=== PATIENT | male | born 1980 | race Caucasian/White ===

== ENCOUNTER 2021-04-09 10:17 | Outpatient (REF) | payer OTHER, SELFPAY ==
[2021-04-09 10:21] LABS: MANUAL DIFF FLAG NO
[2021-04-09 10:39] LABS: Basophils Percent Auto 0.3 % (0-2); Eosinophils Absolute Auto 0.2 X10*3/uL (0.0-0.4); Eosinophils Percent Auto 3.1 % (0-4); Hematocrit 46.6 % (42-52); Hemoglobin 15.2 g/dl (14.0-18.0); Imm Gran Abs Auto 0.03 X10*3/uL (0.00-0.03); Imm Gran Pct Auto 0.4 % (0.0-0.4); Lymphocytes Absolute Auto 1.9 X10*3/uL (1.2-4.9); Lymphocytes Percent Auto 27.4 % (20-40); Mean Corpuscular HGB Conc 32.6 g/dl (31.0-36.0); Mean Corpuscular Hemoglobin 29.1 pg (27.0-33.0); Mean Corpuscular Volume 89.3 fL (80-98); Monocytes Absolute Auto 0.6 X10*3/uL (0.1-1.2); Monocytes Percent Auto 8.6 % (2-11); Neutrophils Absolute Auto 4.1 X10*3/uL (2.0-8.3); Neutrophils Percent Auto 60.2 % (45-73); Platelet Count 257 X10*3/uL (160-400); Red Blood Count 5.22 X10*6/uL (4.60-5.80); Red Cell Distribution Width 12.3 % (11.0-16.0); White Blood Count 6.9 X10*3/uL (4.8-10.8)
[2021-04-09 10:52] LABS: Glucose Urine UA NEG (NEG); Leukocyte Esterase Urine NEG (NEG); Nitrite Urine NEG (NEG); PH 6.5 (5.0-8.0); Urine Blood NEG (NEG); Urine Ketones NEG (NEG); Urine Protein NEG (NEG-TRACE)
[2021-04-09 10:54] LABS: Appearance Urine CLEAR; Color Urine YELLOW
[2021-04-09 11:43] LABS: Alanine Aminotransferase 47 U/L (0-40); Albumin Level 4.3 g/dL (3.5-5.0); Alkaline Phosphatase 94 U/L (39-117); Anion Gap 10 (12-20); Aspartate Amino Transferase 28 U/L (5-37); Bilirubin Total 0.5 mg/dL (0.0-1.0); Blood Urea Nitrogen 21 mg/dL (9-16); Calcium 8.8 mg/dL (8.4-10.2); Carbon Dioxide 27 mmol/L (22-29); Chloride 107 mmol/L (96-108); Cholesterol 169 mg/dL; Estimated Glomerular Filt Rate > 60; Glucose Fasting 91 mg/dL (60-99); HDL Cholesterol 70 mg/dL; LDL Cholesterol Calculated 86 mg/dl; Potassium 4.2 mmol/L (3.3-5.1); Sodium 140 mmol/L (135-145); Total Protein 6.8 g/dL (6.5-8.0); Triglycerides 66 mg/dL
[2021-04-09 12:08] LABS: PSA,Total (Free>4and<10) 0.31 ng/mL (0.00-4.00)
== END 2021-04-09 10:18 | disposition home or self-care (01) ==
LOC: HO.LNP 10:17
PROVIDERS: Visit Provider Internal Medicine
DX: Z00.00 Encounter for general adult medical examination without abnormal findings (principal); I10 Essential (primary) hypertension; J45.20 Mild intermittent asthma, uncomplicated; R79.89 Other specified abnormal findings of blood chemistry; K92.1 Melena; Z12.5 Encounter for screening for malignant neoplasm of prostate
CPT/HCPCS: 80053; 80061; 81003; 84153; 85025

== ENCOUNTER 2022-04-08 10:38 | Outpatient (REF) | payer OTHER, SELFPAY ==
[2022-04-08 10:42] LABS: MANUAL DIFF FLAG NO
[2022-04-08 11:04] LABS: Basophils Percent Auto 0.6 % (0-2); Eosinophils Absolute Auto 0.4 X10*3/uL (0.0-0.4); Eosinophils Percent Auto 5.5 % (0-4); Hematocrit 45.9 % (42.0-52.0); Imm Gran Abs Auto 0.03 X10*3/uL (0.00-0.03); Imm Gran Pct Auto 0.5 % (0.0-0.4); Lymphocytes Percent Auto 30.8 % (20-40); Mean Corpuscular HGB Conc 32.7 g/dl (31.0-36.0); Mean Corpuscular Volume 88.6 fL (80.0-98.0); Mean Platelet Volume 9.9 fL (9.4-12.4); Monocytes Absolute Auto 0.6 X10*3/uL (0.1-1.2); Monocytes Percent Auto 9.6 % (2-11); Neutrophils Absolute Auto 3.5 x10*3/uL (2.0-8.3); Platelet Count 295 X10*3/uL (160-400); Red Blood Count 5.18 X10*6/uL (4.60-5.80); Red Cell Distribution Width 12.3 % (11.0-16.0); White Blood Count 6.6 X10*3/uL (4.8-10.8)
[2022-04-08 11:18] LABS: Alanine Aminotransferase 45 U/L (0-40); Albumin Level 4.3 g/dL (3.5-5.0); Alkaline Phosphatase 98 U/L (39-117); Anion Gap 13 (12-20); Aspartate Amino Transferase 27 U/L (5-37); Bilirubin Total 0.7 mg/dL (0.0-1.0); Blood Urea Nitrogen 19 mg/dL (9-16); Carbon Dioxide 27 mmol/L (22-29); Chloride 105 mmol/L (96-108); Cholesterol 151 mg/dL; Estimated Glomerular Filt Rate > 60; Glucose Fasting 84 mg/dL (60-99); HDL Cholesterol 63 mg/dL; LDL Cholesterol Calculated 76 mg/dl; Potassium 4.2 mmol/L (3.3-5.1); Sodium 141 mmol/L (135-145); Total Protein 7.1 g/dL (6.5-8.0); Triglycerides 61 mg/dL
[2022-04-08 11:31] LABS: Appearance Urine CLEAR; Color Urine YELLOW; Glucose Urine UA NEG (NEG); Leukocyte Esterase Urine NEG (NEG); Nitrite Urine NEG (NEG); Urine Blood NEG (NEG); Urine Ketones NEG (NEG); Urine Protein NEG (NEG-TRACE)
[2022-04-08 11:38] LABS: PSA,Total (Free>4and<10) 0.44 ng/mL (0.00-4.00)
== END 2022-04-08 10:39 | disposition home or self-care (01) ==
LOC: HO.LNP 10:38
PROVIDERS: Visit Provider Internal Medicine
DX: Z00.00 Encounter for general adult medical examination without abnormal findings (principal); Z12.5 Encounter for screening for malignant neoplasm of prostate; I10 Essential (primary) hypertension; R79.89 Other specified abnormal findings of blood chemistry
CPT/HCPCS: 80053; 80061; 81003; 84153; 85025

== ENCOUNTER 2023-03-27 15:57 | Emergency (ER) | payer OTHER, SELFPAY ==
--- NOTE | ~2023-03-27 | XR_ITS ---
EXAMINATION: XR HAND, LEFT XR HAND AND WRIST, RIGHT CLINICAL INFORMATION: Lacerations with fracture COMPARISON: None available. TECHNIQUE: 3 views of the left hand and wrist, 3 views of the right hand and wrist FINDINGS: There is a tiny punctate 1 mm foreign body seen in the webbing between the fourth and fifth digits on the left. There is a soft tissue laceration along the medial border of the right fifth digit. Bones and soft tissues are otherwise normal. No fractures. Alignment is anatomic. Joint spaces are maintained. No erosions or soft tissue calcifications. XR/XR hand wrist RT IMPRESSION: 1. Soft tissue laceration right fifth digit with tiny foreign body on the left as described above. 2. No evidence of an acute osseous injury.
--- NOTE | ~2023-03-27 | XR_ITS ---
EXAMINATION: XR HAND, LEFT XR HAND AND WRIST, RIGHT CLINICAL INFORMATION: Lacerations with fracture COMPARISON: None available. TECHNIQUE: 3 views of the left hand and wrist, 3 views of the right hand and wrist FINDINGS: There is a tiny punctate 1 mm foreign body seen in the webbing between the fourth and fifth digits on the left. There is a soft tissue laceration along the medial border of the right fifth digit. Bones and soft tissues are otherwise normal. No fractures. Alignment is anatomic. Joint spaces are maintained. No erosions or soft tissue calcifications. XR/XR hand LT 2V IMPRESSION: 1. Soft tissue laceration right fifth digit with tiny foreign body on the left as described above. 2. No evidence of an acute osseous injury.
[2023-03-27 16:09] VITALS: BP 140/99; PULSE 80; RESP 18; TEMP 36.9; O2SAT 94; BMI 32.9
--- NOTE | 2023-03-27 16:12 | ED.GENADULT ---
HPI - General Adult General Chief complaint: Wound/Laceration Stated complaint: lacerations to both hands Time Seen by Provider: 03/27/23 16:15 Source: patient and family () Mode of arrival: ambulatory Limitations: no limitations History of Present Illness HPI narrative: Patient is a 42 year old assigned male at with no reported medical history presenting to the emergency department today with a right and left hand laceration. Patient states that he was attempted to work on a grill when his hand slipped loosening a nut, causing him to cut both his right 5th finger and left 3rd finger. Patient states that he does not know when his last tetanus shows. Patient denies any dizziness, lightheadedness, abdominal pain, nausea, vomiting, fever, chills, blurry vision, double vision, loss of vision, chest pain, difficulty breathing, shortness of breath, back pain, night sweats, pain with urination, increased urinary frequency, increased urinary urgency, blood in his urine or stool, syncope or a near syncopal episode, bowel incontinence, bladder incontinence, bowel retention, bladder retention, or any other complaints at this time. Onset (ago): minute(s) Location: left, right and upper extremity Severity: mild Relieving factors: none Exacerbating factors: none Associated symptoms: denies other symptoms Treatments prior to arrival: none Related Data Previous Rx's Medication Instructions Recorded cephalexin 500 mg capsule 500 mg PO Q6H 7 days #28 caps 03/27/23 Allergies Allergy/AdvReac Type Severity Reaction Status Date / Time No Known Allergies Allergy Unverified 07/16/20 15:11 Review of Systems Constitutional: Constitutional: Reports no additional constitutional complaints, Denies chills, Denies fever(s) and Denies night sweats Eyes: Eyes: Reports no additional eye complaints, Denies blurry vision, Denies change in vision, Denies diplopia, Denies eye discharge, Denies loss of vision and Denies eye pain ENT: Denies dizziness Cardiovascular: Cardiovascular: Reports no additional cardiovascular complaints, Denies chest pain, Denies lightheadedness, Denies Loss of Consciousness and Denies dyspnea Respiratory: Respiratory: Reports no additional respiratory complaints and Denies dyspnea Gastrointestinal: Gastrointestinal: Reports no additional gastrointestinal complaints, Denies abdominal pain, Denies melena, Denies hematochezia, Denies change in bowel habits and Denies change in stool character Genitourinary: Genitourinary: Reports no additional male genitourinary complaints, Denies hematuria, Denies oliguria, Denies difficulty urinating, Denies dysuria, Denies urinary frequency, Denies urinary hesitancy, Denies urinary incontinence and Denies urinary urgency Musculoskeletal: Musculoskeletal: Reports no additional musculoskeletal complaints, Denies numbness and Denies tingling Comments: right 5th finger laceration and left 3rd digit laceration Neurologic: Denies dizziness, Denies loss of vision, Denies numbness and Denies tingling Psychiatric: Psychiatric: Reports no additional psychiatric complaints Endocrine: Endocrine: Reports no additional endocrine complaints Hematologic/Lymphatic: Hematologic/Lymphatic: Reports no additional hematologic/lymphatic complaints Allergic/Immunologic: Allergic/Immunologic: Reports no additional allergic/immunologic complaints PMFSH Past Medical History Attestation statement: The following information was validated with the patient. (all information validated with the patient's ) Source: old records reviewed, obtained from family (patient's ) and nursing notes reviewed Social History Social History Advance Directives: No Advance Directives Information Provided: No Physical Exam ED Vital Signs: Vital Signs - 24 hr 03/27/23 16:09 Temperature 98.4 F Pulse Rate 80 Respiratory Rate 18 Blood Pressure 140/99 H Pulse Oximetry 94 Oxygen Delivery Method Room Air BMI result Body Mass Index 32.9 Const General: cooperative, no acute distress, alert and awake Nutritional Appearance: well nourished Orientation/consciousness: patient oriented x3 Limitations: no limitations [facility] Head: Yes normal to inspection and Yes atraumatic Ears: hearing grossly normal bilaterally and external ears normal General nose exam: Normal external nose present, no nasal discharge noted and no epistaxis Face and sinus: Yes normal facial exam, No abrasion and No laceration Mouth: Normal oral and palatal mucosa present, no drooling and no muffled voice Eyes General: appearance normal, both eyes and all related structures Periorbital: periorbital findings normal Eyelids: Yes eyelids normal Conjunctivae: conjunctivae normal Pupils: Equal, round and reactive pupils present EOM: EOMs intact bilaterally Neck Neck: Yes normal visual inspection, Yes full ROM and Yes no lymphadenopathy Chest Chest palpation & inspection: normal inspection of the chest Resp Effort & Inspection: normal respiratory effort and able to speak in complete sentences Auscultation: clear to auscultation bilaterally GI Inspection: Yes normal to inspection Neuro General: patient oriented x3 and moves all extremities Cranial nerves: Yes Equal, round and reactive pupils present Cognition (Neuro): normal cognition Motor exam (neuro): 5/5 motor strength present throughout Sensory Exam: Normal double simultaneous stimulation for sensation Coordination: [id number] test normal Extrem General: Yes full ROM and Yes capillary refill normal Hand/finger images: 1. 3.5cm laceration, no active bleeding 2. 1cm laceration, no active bleeding Psych Appearance: grossly normal Mental Status: mental status grossly normal Affect: normal affect Attitude: cooperative Thought process: Normal thought process present Thought content: Normal thought content present Insight: Good insight present (Psych) Course Course Course Narrative: RME: patient presents to the ED for bilateral hand finger lacerations while working the grIwebalize today. unknown last tetanus shot. xryas ordered. patient brought to [facility] Medications Administered Discontinued Medications Generic Name Dose Route Start Last Admin Trade Name Freq PRN Reason Stop Dose Admin Diphtheria/Tetanus/Acell Pertussis 0.5 ml 03/27/23 16:29 03/27/23 17:42 Diphth,Pertus(Acell),Tet Adult 0.5 Ml Syringe IM 03/27/23 16:30 0.5 ml .ONCE ONE Administration Lidocaine HCl 10 ml 03/27/23 16:29 03/27/23 17:34 Lidocaine Hcl 1 % Mpf 5 Ml Vial SUBCUT 03/27/23 16:30 10 ml ONCE ONE Administration Procedures Laceration Laceration 1: Site: hand Side (If applicable): right Size (cm): 3.5 Description: linear Depth: simple, single layer Local Anesthetic: lidocaine 1% Amount of anesthesia used (mL): 5 Pre-repair: wound explored, irrigated extensively and deep structures intact Skin layer closed with: other (prolene) Size (cm): 4-0 Number of sutures: 5 Technique: simple, interrupted Subcutaneous layer closed with: chromic gut Size: 5-0 Number of sutures: 2 Technique: simple, interrupted Laceration 2: Site: hand Side (If applicable): left Size (cm): 1 Description: flap Depth: simple, single layer Local Anesthetic: lidocaine 1% Amount of anesthesia used (mL): 2.5 Pre-repair: wound explored, irrigated extensively and deep structures intact Skin layer closed with: other (prolene) Size (cm): 6-0 Number of sutures: 1 Technique: simple, interrupted Medical Decision Making Medical Decision Making MDM Narrative: Patient is a 42 year old assigned male at with no reported medical history presenting to the emergency department today with a right and left hand laceration. Patient's physical exam was as noted in the physical exam portion of this chart. Patient's bilateral hand x-ray showed no acute process. I explained my physical exam findings as well as all test results to the patient and the patient's . I answered all questions asked by the patient and the patient's . Patient's lacerations were repaired, per procedure note, without incident. Patient's ROM and PMS was in tact prior to and after sutures. Patient brought up to date on tetanus. I stressed the importance of the patient having his sutures removed in 7-10 days. I stressed the importance of the patient not soaking the affected area. I stressed the importance of the patient performing daily wound checks and dressing changes. I stressed the importance of the patient taking his medication as prescribed. I stressed the importance of the patient following up with his primary care provider. I stressed the importance of the patient returning to the emergency department immediately if his symptoms were to worsen or if he were to develop any dizziness, shortness of breath, difficulty breathing, chest pain, blurry vision, loss of vision, nausea, vomiting, abdominal pain, fever, chills, back pain, or any other complaints. Patient and the patient's verbalized agreement and understanding with this treatment plan and discharge. Differential Diagnosis Differential Diagnoses: The differential diagnosis associated with the presentation includes laceration Independent Interpretation I performed an independent interpretation of an: Plain X-Ray Interpretation: My interpretation is in agreement with the radiologist's impression of these imaging studies. EXAMINATION: XR HAND, LEFT XR HAND AND WRIST, RIGHT CLINICAL INFORMATION: Lacerations with fracture? COMPARISON: None available.? TECHNIQUE: 3 views of the left hand and wrist, 3 views of the right hand and wrist FINDINGS: There is a tiny punctate 1 mm foreign body seen in the webbing between the fourth and fifth digits on the left. There is a soft tissue laceration along the medial border of the right fifth digit. Bones and soft tissues are otherwise normal. No fractures. Alignment is anatomic. Joint spaces are maintained. No erosions or soft tissue calcifications. ? XR/XR hand wrist RT IMPRESSION: 1.? Soft tissue laceration right fifth digit with tiny foreign body on the left as described above. 2.? No evidence of an acute osseous injury. Dictated By: Brenden Snider MD Signed By: Electronically signed by Brenden Snider MD 03/27/23 [id number] Independent Historian Clinical information obtained from an independent historian. History obtained from or confirmed by: Spouse Discharge Plan Discharge Clinical Impression: Laceration Patient Disposition: Home, Self-Care Instructions: Care For Your Stitches (DC) Additional Instructions: Have your stitches (5 on the right hand and 1 on the left hand) removed in 7-10 days. Do NOT soak the affected area. Perform daily dressing changes and wound checks. Take your antibiotics as prescribed. Follow up with your primary care provider. Return to the emergency department immediately if your symptoms worsen or if you develop any dizziness, shortness of breath, difficulty breathing, chest pain, blurry vision, loss of vision, nausea, vomiting, abdominal pain, fever, chills, back pain, or any other complaints. Prescriptions: New cephalexin 500 mg capsule 500 mg PO Q6H 7 Days Qty: 28 0RF Referrals: Harman Haro MD [Primary Care Provider] - Interventions: ED Discharge Assessment Last Done: 03/27/23 18:02 Discharge Date/Time: 03/27/23 18:03 Print Language: Setswana
--- NOTE | 2023-03-27 16:44 | PC.NURSE ---
bilateral hands placed in ns and iodine, awaiting suture repair by provider
[2023-03-27] MEDS: Lidocaine HCl 1 % MPF 5 ML VIAL 10 ML SUBCUT (17:34)
[2023-03-27] MEDS: Diphth,Pertus(ACell),Tet Adult 0.5 ML SYRINGE IM (17:42)
--- NOTE | 2023-03-27 18:02 | PC.NURSE ---
pt medicated per MAR
--- OUTSIDE RECORDS SUMMARY | 2023-03-27 18:04 | XMS_ITS | Continuity of Care Document ---
Author Name Unknown Organization [facility] Address [address] [address]- Care Team Providers Care Pneumatic Press Hand Name Role Phone Estrellita TIRADO, Harman Primary Care Physician [phone] Encounter [facility] [place] Date(s): 05/04/20 - 06/03/20 [facility] [address] [place] [address]- [facility] Allergies, Adverse Reactions, Alerts No Known Medication Allergies Medications Accolate 20 mg oral tablet 1 tablet = 20 mg, By Mouth, 2 times a day, 1 hour before or 2 hours after meals, # 60 tablet, 5 Refills, Maintenance, 01/20/20 16:46:00 EDT, Tablet, [id number], 190.5, cm, 12/18/19 9:58:00 EST, Height, 117, kg, 12/18/19 9:58:00 EST, Dry Weight Start Date: 01/20/20 Status: Ordered Advair Diskus 500 mcg-50 mcg inhalation powder 1 puffs, Inhalation, 2 times a day, # 180 each, 5 Refills, Maintenance, 08/13/15 9:24:37, Powder, 1puffs Inhalation 2 times a day Start Date: 08/13/15 Status: Ordered CeleXA 40 mg oral tablet 1 tablet = 40 mg, By Mouth, Daily, # 30 tablet, 0 Refills, Maintenance, 08/13/15 9:00:44, Tablet Start Date: 08/13/15 Status: Ordered Fish Oil 1000 mg oral capsule See Instructions, 3 capsule By Mouth 2 times a day, 0 Refills, Maintenance, 08/13/15 9:03:08, Capsule Start Date: 08/13/15 Status: Ordered Multivitamin Tablet 1 tablet, By Mouth, Daily, # 30 tablet, 0 Refills, Maintenance, 08/13/15 9:01:28, Tablet Start Date: 08/13/15 Status: Ordered ProAir HFA 90 mcg/inh inhalation aerosol with adapter 1 puffs, Inhalation, Every 4 hours, PRN for wheezing, # 8.5 Gm, 0 Refills, Maintenance, 08/13/15 9:00:32, Aerosol Start Date: 08/13/15 Status: Ordered Pulmicort Flexhaler 180 mcg 2 puffs, Inhalation, 2 times a day, J45.909, # 1 each, 6 Refills, Maintenance, 05/07/20 9:55:00 EDT, Powder, [facility]/pharmacy #[id number], ICD Code J45.31; J45.909, 2 puffs Inhalation 2 times a day,Instr:J45.909, 190.5, cm, 12/18/19 9:58:00 EST,... Start Date: 05/07/20 Status: Ordered Ritalin 10 mg oral tablet 3 tablets, By Mouth, Daily, Refills 0, Tot. Refills 0, Maintenance, 12/13/19 12:50:00 EST Start Date: 12/13/19 Status: Ordered Singulair 10 mg oral tablet 10 mg, 1, tablet, By Mouth, Daily in PM, # 30 tablet, Refills 11, Tot. Refills 11, Maintenance, 01/09/19 12:37:00 EDT, Route to Pharmacy Electronically, [id number], [facility]/pharmacy #[id number], ICD Code J45.909 Start Date: 01/09/19 Status: Ordered Spiriva Respimat 1.25 mcg/inh inhalation aerosol 2 puffs, Inhalation, Daily, needs appointment for further refills., # 1 each, 11 Refills, Maintenance, 05/04/20 11:11:00 EDT, Aerosol, [facility]/pharmacy #[id number], ICD Code J44.30, 190.5, cm, 12/18/19 9:58:00EST, Height, 117, kg, 12/18/19 9:58:00 EST, Dry Weight Start Date: 05/04/20 Status: Ordered Problem List Condition Effective Dates Status Health Status Inform ant Mild persistent asthma(Confirmed) Active Social History Social History Type Response Smoking Status Former smoker; Tobac co user in household: No; Other: quit smoking 2011; entered on: 03/08/16 Sex
--- OUTSIDE RECORDS SUMMARY | 2023-03-27 18:04 | XMS_ITS | Continuity of Care Document ---
Author Name Unknown Organization [facility] Address [address] [place] [phone]- Care Team Providers Care Export Clerk Name Role Phone Estrellita TIRADO, Harman Primary Care Physician [phone] Encounter [facility] Date(s): 11/12/20 - 12/12/20 [facility] [address] [place] [id number] Allergies, Adverse Reactions, Alerts No Known Medication [...] 2 puffs, Inhalation, 2 times a day, J45.909 further refills require pt to schedule and keep an appointment with MD., # 1 each, 2 Refills, Maintenance, 11/17/20 9:52:00 EST, Powder, [facility]/pharmacy #[id number], ICD Code J45.31; J45.909, 2 puffs... Start Date: 11/17/20 Status: Ordered Ritalin 10 mg oral tablet 3 tablets, By Mouth, Daily, Refills 0, Tot. Refills 0, Maintenance, 12/13/19 12:50:00 EST Start Date: 12/13/19 Status: Ordered Singulair 10 mg oral tablet 10 mg, 1, tablet, By Mouth, Daily in PM, # 30 tablet, Refills 11, Tot. Refills 11, Maintenance, 01/09/19 12:37:00 EDT, Route to Pharmacy Electronically, [id number], [facility]/pharm[facility] #[id number], ICD Code J45.909 Start Date: 01/09/19 Status: Ordered Spiriva Respimat 1.25 mcg/inh inhalation aerosol 2 puffs, Inhalation, Daily, needs appointment for further refills., # 1 each, 11 Refills, Maintenance, 05/04/20 11:11:00 EDT, Aerosol, [facility]/pharm[facility] #[id number], ICD Code J44.30, 190.5, cm, 12/18/19 [...]
--- OUTSIDE RECORDS SUMMARY | 2023-03-27 18:04 | XMS_ITS | Continuity of Care Document ---
Author Name Unknown Organization [facility] Address [address] [place] [address]- Care Team Providers Care Director Of Special Events Name Role Phone Estrellita TIRADO, Harman Primary Care Physician [phone] Encounter [id number] Date(s): 07/28/21 - 08/27/21 [facility] [address] [place] [address]- Attending Physician: Rashard Gallardo Admitting Physician: AdmtrRashard Referring Physician: Admtr, Ar8 Allergies, Adverse Reactions, Alerts No Known Medication Allergies Medications Accolate 20 mg oral tablet 1 tablet = 20 mg, By Mouth, 2 times a day, 1 hour before or 2 hours after meals, # 60 tablet, 5 Refills, Maintenance, 01/20/20 16:46:00 EDT, Tablet, [facility]/pharmacy #[id number], 190.5, cm, 12/18/19 9:58:00 EST, Height, [...] an appointment with MD., # 1 each, 6 Refills, Maintenance, 02/10/21 13:15:00 EDT, Powder, [id number], ICD Code J45.31; J45.909, 2 puff... Start Date: 02/10/21 Status: Ordered Ritalin 10 mg oral tablet 3 tablets, By Mouth, Daily, Refills 0, Tot. Refills 0, Maintenance, 12/13/19 12:50:00 EST Start Date: 12/13/19 Status: Ordered Singulair 10 mg oral tablet 10 mg, 1, tablet, By Mouth, Daily in PM, # 30 tablet, Refills 11, Tot. Refills 11, Maintenance, 01/09/19 12:37:00 EDT, Route to Pharmacy Electronically, [id number], [id number], ICD Code J45.909 Start Date: 01/09/19 Status: Ordered Spiriva Respimat 1.25 mcg/inh inhalation aerosol 2 puffs, Inhalation, Daily, # 4 mL, 5 Refills, Maintenance, 05/28/21 10:59:00 EDT, [id number], 190.5, cm, 01/26/21 10:00:00 EDT, Height, 117, kg, 12/18/19 9:58:00 EST, Dry Weight Start Date: 05/28/21 Status: Ordered Problem List Condition Effective Dates Status Health Status Inform ant Mild persistent asthma(Confirmed) Active Social History Social History Type Response Smoking Status Former smoker; Tobac co user in household: No; Other: quit smoking 2011; entered on: 03/08/16 Sex
--- OUTSIDE RECORDS SUMMARY | 2023-03-27 18:04 | XMS_ITS | Continuity of Care Document ---
Author Name Unknown Organization [facility] Address [address] [address]- Care Team Providers Care Electronics Inspector Name Role Phone Estrellita TIRADO, Harman Primary Care Physician [phone] Encounter [facility] [place] Date(s): 05/06/20 - 06/05/20 [facility] [address] [place] [address]- [facility] Allergies, Adverse Reactions, Alerts No Known Medication [...] 6 Refills, Maintenance, 05/07/20 9:55:00 EDT, Powder, [facility]/pharmacy #[id number], ICD Code J45.31; J45.909, 2 puffs [...] 01/09/19 12:37:00 EDT, Route to Pharmacy Electronically, [id number], [facility]/pharmacy #[id number], ICD Code J45.909 Start Date: 01/09/19 Status: Ordered Spiriva Respimat 1.25 mcg/inh inhalation aerosol 2 puffs, Inhalation, Daily, needs appointment for further refills., # 1 each, 11 Refills, Maintenance, 05/04/20 11:11:00 EDT, Aerosol, [facility]/pharmacy #[id number], ICD Code J44.30, 190.5, cm, 12/18/19 [...]
--- OUTSIDE RECORDS SUMMARY | 2023-03-27 18:04 | XMS_ITS | Continuity of Care Document ---
Author Name Unknown Organization [facility] Address [address] [place] [address]- Care Team Providers Care Fly Raiser Lockstitch Name Role Phone Estrellita TIRADO, Harman Primary Care Physician [phone] Encounter [facility] [place] Date(s): 02/10/21 - 03/12/21 [facility] [address] [place] [id number] Allergies, Adverse Reactions, Alerts No Known Medication [...] 6 Refills, Maintenance, 02/10/21 13:15:00 EDT, Powder, [facility]/pharmacy #[id number], ICD Code J45.31; J45.909, 2 puff... [...] 01/09/19 12:37:00 EDT, Route to Pharmacy Electronically, [id number], [facility]/pharmacy #[id number], ICD Code J45.909 Start Date: 01/09/19 Status: Ordered Spiriva Respimat 1.25 mcg/inh inhalation aerosol 2 puffs, Inhalation, Daily, needs appointment for further refills., # 1 each, 11 Refills, Maintenance, 05/04/20 11:11:00 EDT, Aerosol, [facility]/pharmacy #[id number], ICD Code J44.30, 190.5, cm, 12/18/19 [...]
--- OUTSIDE RECORDS SUMMARY | 2023-03-27 18:04 | XMS_ITS | Continuity of Care Document ---
Author Name Unknown Organization [facility] Address [address] [address]- Care Team Providers Care Associate Biological Sales Name Role Phone Harman Haro MD Primary Care Physician [phone] Encounter [facility] [place] Date(s): 05/25/20 - 06/28/20 [facility] [address] [facility] [address] [place] [address] [facility] Attending Physician: Breezy Zimmer MD Admitting Physician: Breezy Zimmer MD Referring Physician: Harman Haro MD Allergies, Adverse Reactions, Alerts No Known Medication Allergies Medications Accolate 20 mg oral tablet 1 tablet = 20 mg, By Mouth, 2 times a day, 1 hour before or 2 hours after meals, # 60 tablet, 5 Refills, Maintenance, 01/20/20 16:46:00 EDT, Tablet, [facility]/pharmacy #[id number], 190.5, cm, 12/18/19 9:58:00 EST, Height, [...] 6 Refills, Maintenance, 05/07/20 9:55:00 EDT, Powder, [facility]/pharmacy #[id number], ICD Code J45.31; J45.909, 2 puffs [...] 01/09/19 12:37:00 EDT, Route to Pharmacy Electronically, [id number], [facility]/pharmacy #[id number], ICD Code J45.909 Start Date: 01/09/19 Status: Ordered Spiriva Respimat 1.25 mcg/inh inhalation aerosol 2 puffs, Inhalation, Daily, needs appointment for further refills., # 1 each, 11 Refills, Maintenance, 05/04/20 11:11:00 EDT, Aerosol, [facility]/pharmacy #[id number], ICD Code J44.30, 190.5, cm, 12/18/19 [...]
== END 2023-03-27 18:03 | disposition home or self-care (01) ==
PROVIDERS: Emergency Provider Emergency Medicine; PCP Internal Medicine
DX: S61.411A Laceration without foreign body of right hand, initial encounter (principal); S61.412A Laceration without foreign body of left hand, initial encounter; S60.512A Abrasion of left hand, initial encounter; S60.511A Abrasion of right hand, initial encounter; M25.532 Pain in left wrist; M25.531 Pain in right wrist; W26.9XXA Contact with unspecified sharp object(s), initial encounter; Y93.9 Activity, unspecified; Y92.9 Unspecified place or not applicable; Y99.9 Unspecified external cause status; Z79.899 Other long term (current) drug therapy; Z23 Encounter for immunization
CPT/HCPCS: 12042; 73110; 73120; 73130; 90471; 90715; 99282; 99284

== ENCOUNTER 2023-04-11 13:12 | Outpatient (REF) | payer OTHER, SELFPAY ==
[2023-04-11 13:17] LABS: MANUAL DIFF FLAG NO
[2023-04-11 13:29] LABS: Appearance Urine Clear; Basophils Percent Auto 0.4 % (0-2); Color Urine Yellow; Eosinophils Absolute Auto 0.2 X10*3/uL (0.0-0.4); Eosinophils Percent Auto 3.4 % (0-4); Glucose Urine UA Negative (Negative); Hematocrit 46.9 % (42.0-52.0); Hemoglobin 15.3 g/dl (14.0-18.0); Imm Gran Abs Auto 0.02 X10*3/uL (0.00-0.03); Imm Gran Pct Auto 0.3 % (0.0-0.4); Leukocyte Esterase Urine Negative (Negative); Lymphocytes Absolute Auto 2.3 X10*3/uL (1.2-4.9); Lymphocytes Percent Auto 33.9 % (20-40); Mean Corpuscular HGB Conc 32.6 g/dl (31.0-36.0); Mean Corpuscular Volume 88.8 fL (80.0-98.0); Mean Platelet Volume 9.6 fL (9.4-12.4); Monocytes Absolute Auto 0.6 X10*3/uL (0.1-1.2); Monocytes Percent Auto 9.4 % (2-11); Neutrophils Absolute Auto 3.6 x10*3/uL (2.0-8.3); Neutrophils Percent Auto 52.6 % (45-73); Nitrite Urine Negative (Negative); Platelet Count 295 X10*3/uL (160-400); Red Blood Count 5.28 X10*6/uL (4.60-5.80); Red Cell Distribution Width 12.4 % (11.0-16.0); Specific Gravity - Urine 1.025 (1.005-1.025); Urine Blood Negative (Negative); Urine Ketones Negative (Negative); Urine Protein Negative (Neg-Trace); White Blood Count 6.8 X10*3/uL (4.8-10.8)
[2023-04-11 13:32] LABS: Bacteria Urine None Seen (None Seen); Hyaline Casts Urine 0-2 /LPF (0-2); Squamous Epithelial Cell Urine 0-2 /HPF (0-2); WBC Urine 0-5 /HPF (0-5)
[2023-04-11 13:52] LABS: Alanine Aminotransferase 62 U/L (0-40); Albumin Level 4.1 g/dL (3.5-5.0); Alkaline Phosphatase 103 U/L (39-117); Anion Gap 10 (12-20); Aspartate Amino Transferase 33 U/L (5-37); Bilirubin Direct 0.2 mg/dL (0.0-0.5); Bilirubin Total 0.6 mg/dL (0.0-1.0); Blood Urea Nitrogen 25 mg/dL (9-16); Calcium 9.2 mg/dL (8.4-10.2); Carbon Dioxide 25 mmol/L (22-29); Chloride 109 mmol/L (96-108); Cholesterol 165 mg/dL; Estimated Glomerular Filt Rate > 60; Glucose Fasting 90 mg/dL (60-99); HDL Cholesterol 61 mg/dL; LDL Cholesterol Calculated 96 mg/dl; Potassium 4.2 mmol/L (3.3-5.1); Sodium 140 mmol/L (135-145); Triglycerides 44 mg/dL
[2023-04-11 14:06] LABS: PSA,Total (Free>4and<10) 0.47 ng/mL (0.00-4.00)
== END 2023-04-11 13:13 | disposition home or self-care (01) ==
LOC: HO.LNP 13:12
PROVIDERS: Visit Provider Internal Medicine
DX: Z00.00 Encounter for general adult medical examination without abnormal findings (principal); I10 Essential (primary) hypertension; R79.89 Other specified abnormal findings of blood chemistry; K92.1 Melena; Z12.5 Encounter for screening for malignant neoplasm of prostate
CPT/HCPCS: 80053; 80061; 80076; 81001; 82248; 84153; 85025

== ENCOUNTER 2023-05-12 11:37 | Outpatient (REF) | payer OTHER, SELFPAY ==
[2023-05-12 11:50] LABS: Appearance Urine Clear; Color Urine Yellow; Glucose Urine UA Negative (Negative); Leukocyte Esterase Urine Negative (Negative); Nitrite Urine Negative (Negative); Specific Gravity - Urine 1.015 (1.005-1.025); Urine Blood Negative (Negative); Urine Ketones Negative (Negative); Urine Protein Negative (Neg-Trace)
[2023-05-12 11:52] LABS: Bacteria Urine None Seen (None Seen); Hyaline Casts Urine 0-2 /LPF (0-2); RBC Urine 0-2 /HPF (0-2); Squamous Epithelial Cell Urine 0-2 /HPF (0-2); WBC Urine 0-5 /HPF (0-5)
== END 2023-05-12 11:38 | disposition home or self-care (01) ==
LOC: HO.LNP 11:37
PROVIDERS: Visit Provider Internal Medicine
DX: R31.9 Hematuria, unspecified (principal)
CPT/HCPCS: 81001

== ENCOUNTER 2023-06-19 10:57 | Outpatient (REF) | payer OTHER, SELFPAY ==
[2023-06-19 11:32] LABS: Appearance Urine Clear; Color Urine Yellow; Glucose Urine UA Negative (Negative); Leukocyte Esterase Urine Negative (Negative); Nitrite Urine Negative (Negative); Urine Blood Negative (Negative); Urine Ketones Negative (Negative); Urine Protein Negative (Neg-Trace)
[2023-06-19 11:37] LABS: Bacteria Urine None Seen (None Seen); Hyaline Casts Urine 0-2 /LPF (0-2); RBC Urine 0-2 /HPF (0-2); Squamous Epithelial Cell Urine 0-2 /HPF (0-2); WBC Urine 0-5 /HPF (0-5)
[2023-06-19 11:44] LABS: Blood Urea Nitrogen 21 mg/dL (9-16)
== END 2023-06-19 10:58 | disposition home or self-care (01) ==
LOC: HO.LNP 10:57
PROVIDERS: Visit Provider Internal Medicine
DX: R31.9 Hematuria, unspecified (principal); R79.9 Abnormal finding of blood chemistry, unspecified
CPT/HCPCS: 81001; 84520

== ENCOUNTER 2024-05-27 11:05 | Outpatient (REF) | payer OTHER, SELFPAY ==
[2024-05-27 11:13] LABS: MANUAL DIFF FLAG NO
[2024-05-27 11:45] LABS: Basophils Percent Auto 0.5 % (0-2); Eosinophils Absolute Auto 0.3 X10*3/uL (0.0-0.4); Eosinophils Percent Auto 4.3 % (0-4); Hematocrit 45.5 % (42.0-52.0); Hemoglobin 14.9 g/dl (14.0-18.0); Imm Gran Abs Auto 0.02 X10*3/uL (0.00-0.03); Imm Gran Pct Auto 0.3 % (0.0-0.4); Lymphocytes Absolute Auto 1.8 X10*3/uL (1.2-4.9); Lymphocytes Percent Auto 31.3 % (20-40); Mean Corpuscular HGB Conc 32.7 g/dl (31.0-36.0); Mean Corpuscular Hemoglobin 29.4 pg (27.0-33.0); Mean Corpuscular Volume 89.7 fL (80.0-98.0); Monocytes Absolute Auto 0.5 X10*3/uL (0.1-1.2); Monocytes Percent Auto 8.9 % (2-11); Neutrophils Absolute Auto 3.2 x10*3/uL (2.0-8.3); Neutrophils Percent Auto 54.7 % (45-73); Platelet Count 291 X10*3/uL (160-400); Red Blood Count 5.07 X10*6/uL (4.60-5.80); Red Cell Distribution Width 12.7 % (11.0-16.0); White Blood Count 5.8 X10*3/uL (4.8-10.8)
[2024-05-27 11:46] LABS: Appearance Urine Clear; Color Urine Yellow; Glucose Urine UA Negative (Negative); Leukocyte Esterase Urine Negative (Negative); Nitrite Urine Negative (Negative); Urine Blood Negative (Negative); Urine Ketones Negative (Negative); Urine Protein Negative (Neg-Trace)
[2024-05-27 11:52] LABS: Bacteria Urine None Seen (None Seen); Hyaline Casts Urine 0-2 /LPF (0-2); RBC Urine 0-2 /HPF (0-2); Squamous Epithelial Cell Urine 0-2 /HPF (0-2); WBC Urine 0-5 /HPF (0-5)
[2024-05-27 12:18] LABS: Alanine Aminotransferase 34 U/L (0-40); Albumin Level 4.1 g/dL (3.5-5.0); Alkaline Phosphatase 88 U/L (39-117); Anion Gap 10 (12-20); Aspartate Amino Transferase 26 U/L (5-37); Bilirubin Direct 0.3 mg/dL (0.0-0.5); Bilirubin Total 0.6 mg/dL (0.0-1.0); Blood Urea Nitrogen 15 mg/dL (9-16); Calcium 9.3 mg/dL (8.4-10.2); Carbon Dioxide 26 mmol/L (22-29); Chloride 108 mmol/L (96-108); Cholesterol 152 mg/dL (<200); Estimated Glomerular Filt Rate > 60; Glucose Fasting 92 mg/dL (60-99); HDL Cholesterol 60 mg/dL (>40); LDL Cholesterol Calculated 79 mg/dL (<100); Potassium 4.1 mmol/L (3.3-5.1); Sodium 140 mmol/L (135-145); Total Protein 7.1 g/dL (6.5-8.0); Triglycerides 69 mg/dL (<150)
== END 2024-05-27 11:06 | disposition home or self-care (01) ==
LOC: HO.LNP 11:05
PROVIDERS: Visit Provider Internal Medicine
DX: Z00.00 Encounter for general adult medical examination without abnormal findings (principal); C82.02 Follicular lymphoma grade I, intrathoracic lymph nodes; M10.9 Gout, unspecified; Z12.5 Encounter for screening for malignant neoplasm of prostate
CPT/HCPCS: 80053; 80061; 80076; 81001; 82248; 84153; 85025

== ENCOUNTER 2025-07-22 09:45 | Outpatient (REF) | payer OTHER, SELFPAY ==
--- OUTSIDE RECORDS SUMMARY | 2024-05-27 03:00 | XMS_ITS ---
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 Name Role Phone Harman Haro Primary Care Provider Results Component Value Reference Range Notes Complete Blood Count Auto Di ff Reviewed date:05/27/2024 05:26:35 PM Interpretation: Performing Lab:[facility], [address] [place] [phone] Notes/Report: White Blood Count 5.8 4.8-10.8 X10*3/uL Red Blood Count 5.07 4.60-5.80 X10*6/uL Hemoglobin 14.9 14.0-18.0 g/dl Hematocrit 45.5 42.0-52.0 % Mean Corpuscular Volume 89.7 80.0-98.0 fL Mean Corpuscular Hemoglobin 29.4 27.0-33.0 pg Mean Corpuscular HGB Conc 32.7 31.0-36.0 g/dl Red Cell Distribution Width 12.7 11.0-16.0 % Platelet Count 291 160-400 X10*3/uL Mean Platelet Volume 10.0 9.4-12.4 fL Neutrophils Percent Auto 54.7 45-73 % Imm Gran Pct Auto 0.3 0.0-0.4 % Lymphocytes Percent Auto 31.3 20-40 % Monocytes Percent Auto 8.9 2-11 % Eosinophils Percent Auto 4.3 0-4 % Basophils Percent Auto 0.5 0-2 % NRBC Pct Auto 0.0 0.0-0.2 /100WBC Neutrophils Absolute Auto 3.2 2.0-8.3 x10*3/u L Imm Gran Abs Auto 0.02 0.00-0.03 X10*3/uL Lymphocytes Absolute Auto 1.8 1.2-4.9 X10*3/u L Monocytes Absolute Auto 0.5 0.1-1.2 X10*3/uL Eosinophils Absolute Auto 0.3 0.0-0.4 X10*3/u L Basophils Absolute Auto 0.0 0.0-0.2 X10*3/uL NRBC Abs Auto 0.000 0.0-0.012 X10*3/uL Comprehensive Belding. Panel Fa st Reviewed date:05/27/2024 12:45:46 PM Interpretation: Performing Lab:[facility], [address] [place] [phone] Notes/Report: Sodium 140 135-145 mmol/L Potassium 4.1 3.3-5.1 mmol/L Chloride 108 96-108 mmol/L Carbon Dioxide 26 22-29 mmol/L Anion Gap 10 12-20 Blood Urea Nitrogen 15 9-16 mg/dL Creatinine 0.85 0.5-1.4 mg/dL Estimated Glomerular Filt Rate > 60 NOTE: For -British individuals, multiply the result by 1.210. Chronic Kidney Disease: Estimated GFR < 60 mL/min/1.73m2 Severe Kidney Disease: Estimated GFR < 15 mL/min/1.73m2 Glucose Fasting 92 60-99 mg/dL Calcium 9.3 8.4-10.2 mg/dL Bilirubin Total 0.6 0.0-1.0 mg/dL Aspartate Amino Transferase 26 5-37 U/L Alanine Aminotransferase 34 0-40 U/L Total Protein 7.1 6.5-8.0 g/dL Albumin Level 4.1 3.5-5.0 g/dL Alkaline Phosphatase 88 39-117 U/L Liver Panel Reviewed date:05/27/2024 12:44:53 PM Interpretation: Performing Lab:[address] [id number] Notes/Report: Bilirubin Direct 0.3 0.0-0.5 mg/dL Lipid Panel Reviewed date:05/27/2024 12:26:03 PM Interpretation: Performing Lab:[address] [phone] Notes/Report: Triglycerides 69 <150 mg/dL Desirable Triglyceride: less than 150 mg/dL Borderline High Triglyceride 150-199 mg/dL High Triglyceride: 200-499 mg/dL Very High Triglyceride: greater than or equal to 5OO mg/dL Cholesterol 152 <200 mg/dL Desirable Cholesterol: less than 200 mg/dL Borderline High Cholesterol: 200-239 mg/dL High Cholesterol: greater than 239 mg/dL LDL Cholesterol Calculated 79 <100 mg/dL Desirable LDL: less than 100 mg/dL Near Optimal/Above Optimal LDL: 110-129 mg/dL Borderline High LDL: 130-159 mg/dL High LDL: 160-189 mg/dL Very High LDL: greater than or equal to 190 mg/dL HDL Cholesterol 60 >40 mg/dL Desirable HDL: greater than 40 mg/dL Note: This HDL assay may give artificially low results in patients with liver disease. PSA,Total (Free>4and<10) Reviewed date:05/27/2024 12:45:26 PM Interpretation: Performing Lab:[address] [phone] Notes/Report: PSA,Total (Free>4and<10) 0.70 0.00-4.00 ng/mL A Free PSA was not performed: The percentage of Free PSA can be used to enhance the differentiation of prostate cancer from benign prostatic disease in subjects whose PSA levels are between 4.0 and 10.0 ng/mL. For subjects whose PSA levels are below 4.0 or above 10.0 ng/mL, the risk of prostate cancer is determined on the basis of the PSA alone. Therefore the % Free PSA is recommended only for those subjects whose PSA levels are between 4.0 and 10.0 ng/mL. PSA methodology: Guy Alinity i Chemiluminescent Microparticle Immunoassay (CMIA) UA ClnCatch+Micro w/rflx Cul t Reviewed date:05/27/2024 01:55:30 PM Interpretation: Performing Lab:[facility] [address], [place] [address] Notes/Report: Urine, Clean Catch Color Urine Yellow Appearance Urine Clear PH 7.0 5.0-9.0 Glucose Urine UA Negative Negative mg/dL Urine Blood Negative Negative Specific Hanna - Urine 1.020 1.005-1.025 Urine Protein Negative Neg-Trace mg/dL Urine Ketones Negative Negative mg/dL Nitrite Urine Negative Negative Leukocyte Esterase Urine Negative Negative RBC Urine 0-2 0-2 /HPF WBC Urine 0-5 0-5 /HPF Squamous Epithelial Cell Urine 0-2 0-2 /HPF Bacteria Urine None Seen None Seen Hyaline Casts Urine 0-2 0-2 /LPF REASON FOR VISIT FASTING LABS Encounters Encounter Location Date Provider Diagnosis Harman Haro MD [address] [place] [address] [place] [phone] 05/27/2024 Harman Haro Blood tests for routine general physical examination Z00.00 ; Essential hypertension I10 and Elevated LFTs R79.89 Assessments Encounter Date Diagnosis (ICD Code) Assessment Notes Treatment Notes Treatment Clinical Notes Section Notes 05/27/2024 Blood tests for routine general physical examination (ICD-10 - Z00.00) 05/27/2024 Essential hypertension (ICD-10 - I10) 05/27/2024 Elevated LFTs (ICD-10 - R79.89) Plan Of Treatment Next Appt Details Provider Name:Harman Lim ier, 07/29/2025 01:00:00 PM, [address] [place] [address], Suite [facility], [place], [place], [phone], Progress Notes * Law FULTON ADOB:[birth year] (44 yo M)Acc No.[id number]:05/27/2024 Progress Note Patient: Law MOORE Provider: Elana Haro MD :1980 A ge:43 Y S ex:Male Date:05/27/2024 Address:[address] [place] [address] Subjective: * Chief Complaints: * 1 . FASTING LABS. * Medical History: Objective: * Vitals: Assessment: * Assessment: 1. B lood tests for routine general physical examination - Z00.00 (Primary) 2 .?Essential hypertension - I10 3 . E levated LFTs - R79.89 Plan: * Treatment: 2. E ssential hypertension L AB: Complete Blood Count Auto Diff (Collection Date & Time - 05/27/2024) L AB: Comprehensive Belding. Panel Fast (Collection Date & Time - 05/27/2024) L AB: Liver Panel (Collection Date & Time - 05/27/2024) L AB: Lipid Panel (Collection Date & Time - 05/27/2024) L AB: PSA,Total (Free>4and<10) (Collection Date & Time - 05/27/2024) L AB: UA ClnCatch+Micro w/rflx Cult (Collection Date & Time - 05/27/2024) 3. E levated LFTs L AB: Complete Blood Count Auto Diff (Collection Date & Time - 05/27/2024) L AB: Comprehensive Belding. Panel Fast (Collection Date & Time - 05/27/2024) L AB: Liver Panel (Collection Date & Time - 05/27/2024) L AB: Lipid Panel (Collection Date & Time - 05/27/2024) L AB: PSA,Total (Free>4and<10) (Collection Date & Time - 05/27/2024) L AB: UA ClnCatch+Micro w/rflx Cult (Collection Date & Time - 05/27/2024) * Procedure Codes: 3 6415 VENIPUNCT, ROUTINE* * * The named appointment provid er may or may not be the originator of this progress note, and it is not deemed complete until electronically signed by the appointment provider. Sign off status: Pending * Provider: Elana Haro MD Date: 0 05/27/2024 Generated for Josephine garcia/Jennifer/eThuntersmitting on: 0 07/22/2025 11:40 AM EDT
--- OUTSIDE RECORDS SUMMARY | 2024-07-23 11:30 | XMS_ITS ---
Author Organization Harman Haro MD Address [address] [place], [place] [phone] Care Team Providers Care Ocular Care Technologist Name Role Phone Harman Haro Primary Care Provider Allergies No Known Allergies REASON FOR VISIT ANNUAL EXAM Medications Medication SIG (Take, Route, Frequency, Duration) Notes Start Date End Date Status Wixela Inhub 500-50 MCG/ACT INHALE 1 PUFF INTO THE LUNGS TWICE A DAY for 90 Active Ventolin HFA * 108 2 puffs as needed Inhalation every 4 hrs for 30 Not-Taking Ibuprofen 600 MG 1 tablet Orally Thre e times a day Not-Taking Benzonatate 100 MG 1 capsule as needed Orally Three times a day Not-Uzair ing Ondansetron 4 MG 1 tablet on the tong ue and allow to dissolve Orally every 8 hrs Not-Taking Pulmicort Flexhaler 180 MCG/ACT INHALE 2 PUFFS BY MOUTH TWICE A DAY SCHEDULE AND KEEP APPOINTMENT INHALATION TWICE A DAY 90 DAYS for 90 Active Spiriva Respimat 1.25 MCG/ACT INHALE 2 PUFFS BY MOUTH ONCE DAILY for 90 Active ProAir HFA 108 (90 Base) MCG/ACT INHALE 2 PUFFS BY MOUTH EVERY 4 HOURS NEEDED ORALLY EVERY 4 HRS Active Tadalafil 20 MG 1 tablet Orally Once a day as needed for 30 day(s) 10/12/2021 Active Ritalin 10 mgs 1 tablet Orally tid Active CeleXA 40mg 1 tablet Orally Once a day for 30 day(s) Active Immunizations Vaccine Route Administration Date Status Comme nts Fluarix Quadrivalent - 150 IM Intramuscular 07/23/2024 Adm inistered Social History Tobacco Use: Social History Observation Description Date Details (start date - stop date) Former Smoker NA - NA Tobacco Use/Smoking Question Answer Notes Patient is a former smoker How long has it been since y ou last smoked? 5-10 years Additional Findings: Tobacco Non-User Fo rmer smoker, currently using no form of tobacco Alcohol Screen Question Answer Notes Did you have a drink contain ing alcohol in the past year? Yes How often did you have a dri nk containing alcohol in the past year? 2 to 3 times a week (3 points) How many drinks did you have on a typical day when you were drinking in the past year? 1 or 2 drinks (0 point) How often did you have 6 or more drinks on one occasion in the past year? Never (0 point) Points 3 Interpretation Negative Vital Signs Blood pressure systolic 124 mm Hg 07/23/20 24 Blood pressure diastolic 66 mm Hg 024 Height 74 in 07/23/2024 Weight 262 lbs 07/23/2024 BMI 33.64 kg/m2 07/23/2024 Encounters Encounter Location Date Provider Diagnosis Harman Haro MD [address] [place] [address] [place] [phone] 07/23/2024 Harman Haro Essential hypertension I10 ; Encounter for general adult medical examination without abnormal findings Z00.00 ; Mild intermittent asthma without complication J45.20 ; Elevated LFTs R79.89 and Encounter for immunization Z23 Assessments Encounter Date Diagnosis (ICD Code) Assessment Notes Treatment Notes Treatment Clinical Notes Section Notes 07/23/2024 Essential hypertension (ICD-10 - I10) doing well 07/23/2024 Encounter for general adult medical examination without abnormal findings (ICD-10 - Z00.00) Labs reviewed and discussed with patient 07/23/2024 Mild intermittent asthma without complication (ICD-10 - J45.20) stable with some wheezes 07/23/2024 Elevated LFTs (ICD-10 - R79.89) has resolved 07/23/2024 Encounter for immunization (ICD-10 - Z23) Plan Of Treatment Treatment Notes Assessment Notes Essential hypertension doing well Encounter for general adult medical examination without abnormal findings Labs reviewed and discussed with patient Mild intermittent asthma wit hout complication stable with some wheezes Elevated LFTs has resolved Next Appt Details Provider Name:Harman Lim ier, 07/29/2025 01:00:00 PM, [address], [address], [place], [place], [phone], Progress Notes * Law FULTON ADOB:[birth year] (43 yo M)Acc No.[id number]:07/23/2024 Progress Notes Patient: Law Aly Provider: Elana Haro MD :1980 A ge:43 Y S ex:Male Date:07/23/2024 Address:[address] [place], [place] [phone] Subjective: * Chief Complaints: * A NNUAL EXAM * HPI: D epression Screening: PHQ-9 L ittle interest or pleasure in doing things N ot at all, F eeling down, depressed, or hopeless N ot at all, T rouble falling or staying asleep, or sleeping too much N ot at all, F eeling tired or having little energy N ot at all, P oor appetite or overeating N ot at all, F eeling bad about yourself or that you are a failure, or have let yourself or your family down N ot at all, T rouble concentrating on things, such as reading the newspaper or watching television N ot at all, M oving or speaking so slowly that other people could have noticed; or the opposite, being so fidgety or restless that you have been moving around a lot more than usual N ot at all, T houghts that you would be better off or of hurting yourself in some way N ot at all, T otal Score 0 . pt is a 43 yo male here for yearly evaluation. had a fall and hurt wrist and ribs. C ommunication Needs: Communication Needs D oes the patient have a hearing impairment N o, D oes the patient have a vision impairment? N o, D oes the patient have a cognition impairment? N o. S ANITA Questions: SDOH Questions I n the past year have you been worried about losing housing? N o, I n the past year have you or any family members you live with been unable to get any of the following when it was really needed? Check all that apply: N one. F all Risk: History H ave you had any falls with injury in the past year? Y es working around the house fell off the ladder landed on right wrist and back. C/o left wrist pain getting better, did not go to the ER. * ROS: G eneral/Constitutional: Change in appetite d enies. C hills d enies. F ever d enies. O phthalmologic: Blurred vision d enies. D ischarge d enies. P ain d enies. E NT: Decreased hearing d enies. S ore throat d enies.?Swollen glands d enies. E ndocrine: Cold intolerance d enies. E xcessive thirst d enies. H eat intolerance d enies. W eight loss d enies. R espiratory: Comments b reathing has been good. C ough d enies.?Shortness of breath at rest d enies. S hortness of breath with exertion d enies.?Wheezing d enies. C ardiovascular: Chest pain at rest d enies. C hest pain with exertion?denies. I rregular heartbeat d enies. S hortness of breath d enies. ? G astrointestinal: Abdominal pain d enies. C hange in bowel habits d enies. D iarrhea d enies. N ausea d enies. R ectal bleeding d enies. V omiting d enies . G enitourinary: Blood in urine d enies. D ifficulty urinating d enies. F requent urination d enies. M usculoskeletal: Painful joints d enies. W eakness d enies. ? S kin: Dry skin d enies. I tching d enies. D enies?Mole(s), changes in moles, new moles or any lesions of concern. D enies P hotosensitivity. R humera d enies. N eurologic: Dizziness d enies. F ainting d enies. H eadache?denies. * Medical History: * Surgical History: * Hospitalization/Major Diagno stic Procedure: * Family History: F ather: alive 68 yrs. M other: alive 68 yrs. 1 brother(s) , 2 sister(s) . 1 son(s) . . Father-Healthy Mother- Healthy, Denies mental health/substance abuse family history, Denies mental health/substance abuse family history, Denies mental health/substance abuse family history. * Social History: T obacco Use: T obacco Use/Smoking P atient is a f ormer smoker, H ow long has it been since you last smoked? 5 -10 years, A dditional Findings: Tobacco Non-User F ormer smoker, currently using no form of tobacco. D rugs/Alcohol: A lcohol Screen D id you have a drink containing alcohol in the past year? Y es, H ow often did you have a drink containing alcohol in the past year? 2 to 3 times a week (3 points), H ow many drinks did you have on a typical day when you were drinking in the past year? 1 or 2 drinks (0 point), H ow often did you have 6 or more drinks on one occasion in the past year? N ever (0 point), P oints 3 , I nterpretation N egative. M iscellaneous: C affeine: yes, 3-4 cups per day. Children: yes. Community involvements: yes. Exercise: yes, jogs 2-3 times a week 30 minutes. Housing: renting. Living with: spouse. Marital status: . Occupation: works full-time. Pets: none. no Travel outside of the [place]. * Medications: T akingCeleXA 40mg Tablet 1 tablet Orally Once a dayRitalin 10 mgs Tablet 1 tablet Orally tidTadalafil 20 MG Tablet 1 tablet Orally Once a day as neededProAir HFA 108 (90 Base) MCG/ACT Aerosol Solution INHALE 2 PUFFS BY MOUTH EVERY 4 HOURS NEEDED ORALLY EVERY 4 HRSSpiriva Respimat 1.25 MCG/ACT Aerosol Solution INHALE 2 PUFFS BY MOUTH ONCE DAILY Pulmicort Flexhaler 180 MCG/ACT Aerosol Powder Breath Activated INHALE 2 PUFFS BY MOUTH TWICE A DAY SCHEDULE AND KEEP APPOINTMENT INHALATION TWICE A DAY 90 DAYS Wixela Inhub 500-50 MCG/ACT Aerosol Powder Breath Activated INHALE 1 PUFF INTO THE LUNGS TWICE A DAY Taking CeleXA 40mg Tablet 1 tablet Orally Once a dayTaking Ritalin 10 mgs Tablet 1 tablet Orally tidTaking Tadalafil 20 MG Tablet 1 tablet Orally Once a day as neededTaking ProAir HFA 108 (90 Base) MCG/ACT Aerosol Solution INHALE 2 PUFFS BY MOUTH EVERY 4 HOURS NEEDED ORALLY EVERY 4 HRSTaking Spiriva Respimat 1.25 MCG/ACT Aerosol Solution INHALE 2 PUFFS BY MOUTH ONCE DAILY Taking Pulmicort Flexhaler 180 MCG/ACT Aerosol Powder Breath Activated INHALE 2 PUFFS BY MOUTH TWICE A DAY SCHEDULE AND KEEP APPOINTMENT INHALATION TWICE A DAY 90 DAYS Taking Wixela Inhub 500-50 MCG/ACT Aerosol Powder Breath Activated INHALE 1 PUFF INTO THE LUNGS TWICE A DAY Not-Taking/PRNOndansetron 4 MG Tablet Dispersible 1 tablet on the tongue and allow to dissolve Orally every 8 hrsBenzonatate 100 MG Capsule 1 capsule as needed Orally Three times a dayIbuprofen 600 MG Tablet 1 tablet Orally Three times a dayVentolin HFA * 108 Aerosol Solution 2 puffs as needed Inhalation every 4 hrsMedication List reviewed and reconciled with the patientNot-Taking/PRN Ondansetron 4 MG Tablet Dispersible 1 tablet on the tongue and allow to dissolve Orally every 8 hrsNot-Taking/PRN Benzonatate 100 MG Capsule 1 capsule as needed Orally Three times a dayNot-Taking/PRN Ibuprofen 600 MG Tablet 1 tablet Orally Three times a dayNot-Taking/PRN Ventolin HFA * 108 Aerosol Solution 2 puffs as needed Inhalation every 4 hrsMedication List reviewed and reconciled with the patient * Allergies: N .K.D.A.yes[Allergies Verified] Objective: * Vitals: H t: 74, Wt:262, BMI:33.64, BP:124/66. * P ast Orders: L ab:UA ClnCatch+Micro w/rflx Cult (Order Date - 05/27/2024) (Collection Date - 05/27/2024) Value Reference Range Color Urine Yellow - Appearance Urine Clear - PH 7.0 5.0-9.0 - Glucose Urine UA Negative Negative - mg/dL Urine Blood Negative Negative - Specific [place] - Urine 1.020 1.005-1.025 - Urine Protein Negative Neg-Trace - mg/dL Urine Ketones Negative Negative - mg/dL Nitrite Urine Negative Negative - Leukocyte Esterase Urine Negative Negative - RBC Urine 0-2 0-2 - /HPF WBC Urine 0-5 0-5 - /HPF Squamous Epithelial Cell Urine 0-2 0-2 - /HP F Bacteria Urine None Seen None Seen - Hyaline Casts Urine 0-2 0-2 - /LPF L ab:Complete Blood Count Auto Diff (Order Date - 05/27/2024) (Collection Date - 05/27/2024) Value Reference Range White Blood Count 5.8 4.8-10.8 - X10*3/uL Red Blood Count 5.07 4.60-5.80 - X10*6/uL Hemoglobin 14.9 14.0-18.0 - g/dl Hematocrit 45.5 42.0-52.0 - % Mean Corpuscular Volume 89.7 80.0-98.0 - fL Mean Corpuscular Hemoglobin 29.4 27.0-33.0 - pg Mean Corpuscular HGB Conc 32.7 31.0-36.0 - g/ dl Red Cell Distribution Width 12.7 11.0-16.0 - % Platelet Count 291 160-400 - X10*3/uL Mean Platelet Volume 10.0 9.4-12.4 - fL Neutrophils Percent Auto 54.7 45-73 - % Imm Gran Pct Auto 0.3 0.0-0.4 - % Lymphocytes Percent Auto 31.3 20-40 - % Monocytes Percent Auto 8.9 2-11 - % Eosinophils Percent Auto 4.3 H 0-4 - % Basophils Percent Auto 0.5 0-2 - % NRBC Pct Auto 0.0 0.0-0.2 - /100WBC Neutrophils Absolute Auto 3.2 2.0-8.3 - x10* 3/uL Imm Gran Abs Auto 0.02 0.00-0.03 - X10*3/uL Lymphocytes Absolute Auto 1.8 1.2-4.9 - X10* 3/uL Monocytes Absolute Auto 0.5 0.1-1.2 - X10*3/ uL Eosinophils Absolute Auto 0.3 0.0-0.4 - X10* 3/uL Basophils Absolute Auto 0.0 0.0-0.2 - X10*3/ uL NRBC Abs Auto 0.000 0.0-0.012 - X10*3/uL L ab:Comprehensive [place]. Panel Fast (Order Date - 05/27/2024) (Collection Date - 05/27/2024) Value Reference Range Sodium 140 135-145 - mmol/L Bilirubin Total 0.6 0.0-1.0 - mg/dL Aspartate Amino Transferase 26 5-37 - U/L Alanine Aminotransferase 34 0-40 - U/L Total Protein 7.1 6.5-8.0 - g/dL Albumin Level 4.1 3.5-5.0 - g/dL Alkaline Phosphatase 88 39-117 - U/L Potassium 4.1 3.3-5.1 - mmol/L Chloride 108 96-108 - mmol/L Carbon Dioxide 26 22-29 - mmol/L Anion Gap 10 L 12-20 - Blood Urea Nitrogen 15 9-16 - mg/dL Creatinine 0.85 0.5-1.4 - mg/dL Estimated Glomerular Filt Rate > 60 - Glucose Fasting 92 60-99 - mg/dL Calcium 9.3 8.4-10.2 - mg/dL L ab:Liver Panel (Order Date - 05/27/2024) (Collection Date - 05/27/2024) Value Reference Range Bilirubin Direct 0.3 0.0-0.5 - mg/dL L ab:Lipid Panel (Order Date 05/27/2024) (Collection Date - 05/27/2024) Value Reference Range Triglycerides 69 <150 - mg/dL Cholesterol 152 <200 - mg/dL LDL Cholesterol Calculated 79 <100 - mg/dL HDL Cholesterol 60 >40 - mg/dL L ab:PSA,Total (Free>4and<10) (Order Date - 05/27/2024) (Collection Date - 05/27/2024) Value Reference Range PSA,Total (Free>4and<10) 0.70 0.00-4.00 - ng/ mL * Examination: G eneral Examination: GENERAL APPEARANCE: w ell developed, well nourished, in no acute distress. HEAD: n ormocephalic, atraumatic. EYES: p upils equal, round, reactive to light and accommodation, sclera non-icteric. EARS: n ormal. ORAL CAVITY: m ucosa moist. THROAT: c lear. NECK/THYROID: n arias supple, full range of motion, no cervical lymphadenopathy, no bruits. SKIN: w arm and dry, no suspicious lesions. HEART: r egular rate and rhythm, S1, S2 normal, no murmurs.? LUNGS: c lear to auscultation bilaterally. ABDOMEN: s oft, nontender, nondistended, bowel sounds present, normal, no organomegaly , no masses palpable. RECTAL EXAM: n ormal tone, no external hemorrhoids, no masses palpable, prostate normal, stool guaiac negative. MALE GENITOURINARY: c ircumcised, no penile lesions or discharge, testes descended bilaterally, no testicular mass. EXTREMITIES: n o clubbing, cyanosis, or edema. NEUROLOGIC: n onfocal, motor strength normal upper and lower extremities, sensory exam intact. Assessment: * Assessment: 1. E ncounter for general adult medical examination without abnormal findings - Z00.00 (Primary) 2 . E ssential hypertension - I10 3 . M ild intermittent asthma without complication - J45.20 4 . E levated LFTs - R79.89 5 . E ncounter for immunization - Z23 Plan: * Treatment: 2. E ssential hypertension Notes: doing well 3. M ild intermittent asthma without complication Notes: stable with some wheezes 4. E levated LFTs Notes: has resolved * Immunizations: Fluarix Quadrivalent - 150 : 0.5 mL (Dose No:1) (Route: Intramuscular) given by Alexus Menon on Right Deltoid * Procedure Codes: 9 0471 IMMUNIZATION [id number] FLU VACCINE NO PRESERV 3 & > * * Sign off status: Completed true * Provider: Elana Haro MD Date: 0 07/23/2024 Generated for Josephine garcia/Jennifer/Saminasmitting on: 0 07/22/2025 11:40 AM EDT History and Physical Notes * HPI (History of Present Illness) Category Sub-Category Detail Notes Category Not es Depression Screening PHQ-9 Little inte rest or pleasure in doing things: Not at all pt is a 43 yo male here for yearly evaluation. had a fall and hurt wrist and ribs Feeling down, depressed, or hopeless: No t at all Trouble falling or staying asleep, or sl eeping too much: Not at all Feeling tired or having little energy: N ot at all Poor appetite or overeating: Not at all Feeling bad about yourself o r that you are a failure, or have let yourself or your family down: Not at all Trouble concentrating on thi ngs, such as reading the newspaper or watching television: Not at all Moving or speaking so slowly that other people could have noticed; or the opposite, being so fidgety or restless that you have been moving around a lot more than usual: Not at all Thoughts that you would be b kendall off or of hurting yourself in some way: Not at all Total Score: 0 SDOH Questions SDOH Questions In the past year have you been worried about losing housing?: No In the past year have you or any family members you live with been unable to get any of the following when it was really needed? Check all that apply:: None Fall Risk History Have you had any falls with injury in the past year?: Yes working around the house fell off the ladder landed on right wrist and back. C/o left wrist pain getting better, did not go to the ER Communication Needs Communication Needs Does the patient have a hearing impairment: No Does the patient have a vision impairmen t?: No Does the patient have a cognition impair ment?: No Examination Category Sub-Category Detail Notes Category Not es General Examination GENERAL APPEARANCE: well dev eloped, well nourished, in no acute distress HEAD: normocephalic, atrau matic EYES: pupils equal, round, reactive to light and accommodation, sclera non-icteric EARS: normal THROAT: clear NECK/THYROID: neck supple, full ra nge of motion, no cervical lymphadenopathy, no bruits HEART: regular rate and rhy thm, S1, S2 normal, no murmurs LUNGS: clear to auscultatio n bilaterally ABDOMEN: soft, nontender, non distended, bowel sounds present, normal, no organomegaly , no masses palpable NEUROLOGIC: nonfocal, motor stre ngth normal upper and lower extremities, sensory exam intact SKIN: warm and dry, no es picious lesions EXTREMITIES: no clubbing, cyanosi s, or edema MALE GENITOURINARY: circumcised, no peni le lesions or discharge, testes descended bilaterally, no testicular mass RECTAL EXAM: normal tone, no exte rnal hemorrhoids, no masses palpable, prostate normal, stool guaiac negative ORAL CAVITY: mucosa moist
--- OUTSIDE RECORDS SUMMARY | 2025-05-30 11:50 | XMS_ITS ---
Author Organization Harman Haro MD Address [address] [place] [phone] Care Team Providers Care Commercial Escrow Officer Name Role Phone Harman Haro Primary Care Provider REASON FOR VISIT RF Medications Medication SIG (Take, Route, Frequency, Duration) Notes Start Date End Date Status Spiriva Respimat 1.25 MCG/ACT INHALE 2 PUFFS BY MOUTH ONCE DAILY for 90 Active Pulmicort Flexhaler 180 MCG/ACT INHALE 2 PUFFS BY MOUTH TWICE A DAY SCHEDULE AND KEEP APPOINTMENT INHALATION TWICE A DAY 90 DAYS for 90 Active Encounters Encounter Location Date Provider Diagnosis Harman Haro MD [address] [place] [address] [place] [phone] 05/30/2025 Harman Haro Plan Of Treatment Medication Medication Name Sig Start Date Stop Date Notes Spiriva Respimat 1.25 MCG/ACT INHALE 2 P UFFS BY MOUTH ONCE DAILY for 90 Pulmicort Flexhaler 180 MCG/ACT INHALE 2 PUFFS BY MOUTH TWICE A DAY SCHEDULE AND KEEP APPOINTMENT INHALATION TWICE A DAY 90 DAYS for 90 Next Appt Details Provider Name:Harman lomeli, 07/29/2025 01:00:00 PM, [address] [place] [address], Suite [facility], [place], [place], [phone], Progress Notes * Law FULTON ADOB:[birth year] (44 yo M)Acc No.[id number]:05/30/2025 Patient: Law MOORE :1980 A ge:44 Y S ex:Male Address:[address] [place] [address] * Refills Refill Spiriva Respimat Aerosol Solution, 1.25 MCG/ACT, 12 Milliliter, INHALE 2 PUFFS BY MOUTH ONCE DAILY, 90, Refills=3 Refill Pulmicort Flexhaler Aerosol Powder Breath Activated, 180 MCG/ACT, 3 _insert, INHALE 2 PUFFS BY MOUTH TWICE A DAY SCHEDULE AND KEEP APPOINTMENT INHALATION TWICE A DAY 90 DAYS, 90, Refills=3 * true * Date: Generated for Josephine garcia/Jennifer/Raúlitting on: 0 07/22/2025 11:40 AM EDT
--- OUTSIDE RECORDS SUMMARY | 2025-06-12 07:18 | XMS_ITS ---
Author Organization Harman Haro MD Address [address] [place] [phone] Care Team Providers Care Supervisor Television Chassis Repair Name Role Phone Harman Haro Primary Care Provider REASON FOR VISIT refill Medications Medication SIG (Take, Route, Frequency, Duration) Notes Start Date End Date Status ProAir HFA 108 (90 Base) MCG/ACT INHALE 2 PUFFS BY MOUTH EVERY 4 HOURS NEEDED ORALLY EVERY 4 HRS for 30 days Active Encounters Encounter Location Date Provider Diagnosis Harman Haro MD [address] [place] [address] [place] [phone] 06/12/2025 Harman Haro Mild intermittent asthma without complication J45.20 Assessments Encounter Date Diagnosis (ICD Code) Assessment Notes Treatment Notes Treatment Clinical Notes Section Notes 06/12/2025 Mild intermittent asthma without complication (ICD-10 - J45.20) Plan Of Treatment Medication Medication Name Sig Start Date Stop Date Notes ProAir HFA 108 (90 Base) MCG/ACT INHALE 2 PUFFS BY MOUTH EVERY 4 HOURS NEEDED ORALLY EVERY 4 HRS for 30 days Next Appt Details Provider Name:Harman lomeli, 07/29/2025 01:00:00 PM, [address] [facility], Suite [facility], [place], [place], [phone], Progress Notes * Lwa FULTON ADOB:[birth year] (44 yo M)Acc No.[id number]:06/12/2025 Patient: Law MOORE :1980 A ge:44 Y S ex:Male Address:[address] [place] [address] * Refills Refill ProAir HFA Aerosol Solution, 108 (90 Base) MCG/ACT, ORALLY, 1, INHALE 2 PUFFS BY MOUTH EVERY 4 HOURS NEEDED, EVERY 4 HRS, 30 days, Refills=3 * true * Date: Generated for Josephine garcia/Jennifer/Raúlitting on: 0 07/22/2025 11:39 AM EDT
--- OUTSIDE RECORDS SUMMARY | 2025-07-22 03:00 | XMS_ITS ---
Author Organization Harman Haro MD Address [address] [place], [place] [id number] Care Team Providers Care [employer] Name Role Phone Harman Haro Primary Care Provider [phone] Results Component Value Reference Range Notes Complete Blood Count Auto Di ff (Not yet reviewed by provider) Interpretation: Performing Lab:[facility], [address] [place] [id number] Notes/Report: White Blood Count 7.2 4.8-10.8 X10*3/uL Red Blood Count 5.10 4.60-5.80 X10*6/uL Hemoglobin 14.7 14.0-18.0 g/dl Hematocrit 45.2 42.0-52.0 % Mean Corpuscular Volume 88.6 80.0-98.0 fL Mean Corpuscular Hemoglobin 28.8 27.0-33.0 pg Mean Corpuscular HGB Conc 32.5 31.0-36.0 g/dl Red Cell Distribution Width 12.7 11.0-16.0 % Platelet Count 319 160-400 X10*3/uL Mean Platelet Volume 9.7 9.4-12.4 fL Neutrophils Percent Auto 62.6 45-73 % Imm Gran Pct Auto 0.4 0.0-0.4 % Lymphocytes Percent Auto 23.0 20-40 % Monocytes Percent Auto 8.6 2-11 % Eosinophils Percent Auto 5.0 0-4 % Basophils Percent Auto 0.4 0-2 % NRBC Pct Auto 0.0 0.0-0.2 /100WBC Neutrophils Absolute Auto 4.5 2.0-8.3 x10*3/u L Imm Gran Abs Auto 0.03 0.00-0.03 X10*3/uL Lymphocytes Absolute Auto 1.7 1.2-4.9 X10*3/u L Monocytes Absolute Auto 0.6 0.1-1.2 X10*3/uL Eosinophils Absolute Auto 0.4 0.0-0.4 X10*3/u L Basophils Absolute Auto 0.0 0.0-0.2 X10*3/uL NRBC Abs Auto 0.000 0.0-0.012 X10*3/uL PSA,Total (Free>4and<10) (No t yet reviewed by provider) Interpretation: Performing Lab:[address] [id number] Notes/Report: PSA,Total (Free>4and<10) 0.41 0.00-4.00 ng/mL A Free PSA was not [...] Immunoassay (CMIA) UA ClnCatch+Micro w/rflx Cul t (Not yet reviewed by provider) Interpretation: Performing Lab:[address] [phone] Notes/Report: Urine, Clean Catch Color Urine Yellow Appearance Urine Clear PH 8.5 5.0-9.0 Glucose Urine UA Negative Negative mg/dL Urine Blood Negative Negative Specific [place] - Urine 1.020 1.005-1.025 Urine Protein Negative Neg-Trace mg/dL Urine Ketones Negative Negative mg/dL Nitrite Urine Negative Negative Leukocyte Esterase Urine Negative Negative RBC Urine 0-2 0-2 /HPF WBC Urine 0-5 0-5 /HPF Squamous Epithelial Cell Urine 0-2 0-2 /HPF Bacteria Urine None Seen None Seen Hyaline Casts Urine 0-2 0-2 /LPF REASON FOR VISIT yearly fasting labs Immunizations Vaccine Route Administration Date Status Comme nts Fluarix Quadrivalent - 150 IM Intramuscular 07/22/2025 Adm inistered Encounters Encounter Location Date Provider Diagnosis Harman Haro MD [address] [place], [place] [id number] 07/22/2025 Harman Haro Blood tests for routine general physical examination Z00.00 ; Encounter for administration of vaccine Z23 ; Essential hypertension I10 and Elevated LFTs R79.89 Assessments Encounter Date Diagnosis (ICD Code) Assessment Notes Treatment Notes Treatment Clinical Notes Section Notes 07/22/2025 Blood tests for routine general physical examination (ICD-10 - Z00.00) 07/22/2025 Encounter for administration of vaccine (ICD-10 - Z23) 07/22/2025 Essential hypertension (ICD-10 - I10) 07/22/2025 Elevated LFTs (ICD-10 - R79.89) Plan Of Treatment Pending Test Test Name Order Date Complete Blood Count Auto Diff 5 Comprehensive [place]. Panel Fast 5 Liver Panel 07/22/2025 Lipid Panel 07/22/2025 PSA,Total (Free>4and<10) 07/22/2025 UA ClnCatch+Micro w/rflx Cult 07/22/2025 Next Appt Details Provider Name:Harman Lim ier, 07/29/2025 01:00:00 PM, [address], [address], [place], [place], [id number], Progress Notes * Law FULTON ADOB:[birth year] (44 yo M)Acc No.[id number]:07/22/2025 Progress Note Patient: Law MOORE Provider: Elana Haro MD :1980 A ge:44 Y S ex:Male Date:07/22/2025 Address:[address] [place] [address] Subjective: * Chief Complaints: * 1 . Yearly fasting labs. * Medical History: Objective: * Vitals: Assessment: * Assessment: 1. E ncounter for administration of vaccine - Z23 (Primary) 2 . B lood tests for routine general physical examination - Z00.00 3 . E ssential hypertension - I10 4 . E levated LFTs - R79.89 Plan: * Treatment: 2. E ssential hypertension L AB: Complete Blood Count Auto Diff (Collection Date & Time - 07/22/2025 07:00 AM) L AB: Comprehensive [place]. Panel Fast L AB: Liver Panel L AB: Lipid Panel L AB: PSA,Total (Free>4and<10) (Collection Date & Time - 07/22/2025 07:00 AM) L AB: UA ClnCatch+Micro w/rflx Cult (Collection Date & Time - 07/22/2025 07:00 AM) 3. E levated LFTs L AB: Complete Blood Count Auto Diff (Collection Date & Time - 07/22/2025 07:00 AM) L AB: Comprehensive [place]. Panel Fast L AB: Liver Panel L AB: Lipid Panel L AB: PSA,Total (Free>4and<10) (Collection Date & Time - 07/22/2025 07:00 AM) L AB: UA ClnCatch+Micro w/rflx Cult (Collection Date & Time - 07/22/2025 07:00 AM) * Immunizations: Fluarix Quadrivalent - 150 : 0.5 mL (Dose No:1) (Route: Intramuscular) given by Alexus Menon , Office Staff on Left Deltoid * Procedure Codes: 3 6415 VENIPUNCT, ROUTINE*, 50161 FLU VACCINE NO PRESERV 3 & >, 31948 IMMUNIZATION ADMIN * * The named appointment provid er may or may not be the originator of this progress note, and it is not deemed complete until electronically signed by the appointment provider. Sign off status: Pending * Provider: Elana Haro MD Date: 0 07/22/2025 Generated for Josephine garcia/Jennifer/eTransmitting on: 07/22/2025 11:39 AM EDT
[2025-07-22 11:29] LABS: PSA,Total (Free>4and<10) 0.41 ng/mL (0.00-4.00)
--- OUTSIDE RECORDS SUMMARY | 2025-07-22 11:40 | XMS_ITS | Patient Health Record ---
Author Organization [facility] Address [address] [place] [address] Care Team Providers Care [employer] Name Role Phone Harman Haro MD Primary Care Provider Power Callejas Unavailable [phone] Allergies Allergen (clinical drug ingredient) Drug/Non Drug Allergy documented on EMR Reaction Allergy Type Onset Date Status dust mold mites poll en (uncoded) Unknown Allergy Active Reason For Referral No Information Medications Medication SIG (Take, Route, Frequency, Duration) Notes Start Date End Date Status ProAir HFA Active Spiriva HandiHaler A ctive Advair HFA Active Montelukast Sodium A ctive Citalopram & Diet Manage Prod Active Methylphenidate Acti ve Fish Oil Active Immunizations Vaccine Route Administration Date Status Comme nts Influenza Unknown 07/30/2018 Administered Social History Tobacco Use: Social History Observation Description Date Details (start date - stop date) Former Smoker NA - NA Tobacco Use/Smoking Question Answer Notes Patient is a former smoker How long has it been since you last smoked? 5-10 years Alcohol Screen Question Answer Notes Did you have a drink contain ing alcohol in the past year? Yes How often did you have a dri nk containing alcohol in the past year? 4 or more times a week (4 points) How many drinks did you have on a typical day when you were drinking in the past year? 1 or 2 drinks (0 point) How often did you have 6 or more drinks on one occasion in the past year? Never (0 point) Points 4 Interpretation Positive Section Notes: Nonsmoker; 1 or 2 beers a fe w times a week Nonsmoker; 1 or 2 beers a fe w times a week Problems Problem Type SNOMED Code ICD Code Onset Dates Problem Status W/U Status Risk Notes Problem 36277821 Rectal bleeding (K62.5) Active confirmed Problem 503798754 Elevated liver enzymes (R74.8) Active confirmed Problem 342264515 Fatty liver (K76.0) Active confirmed Plan Of Treatment Pending Test Test Name Order Date LIVER PROFILE 03/06/2019 LIVER PROFILE 07/03/2018 Future Test Test Name Order Date COLONOSCOPY 06/19/2018 Insurance Providers Payer Name Payer Address Payer Phone Subscriber Number Group Number Insured Name Patient Relationship to Insured Coverage Start Date Coverage End Date [facility] [address] [place] [phone] [id number] ROBERT FULTON Self - patient is the insured Medical (General) History Medical History History ICD Code Enviromental allergies Asthma Denies AR,DM,CVA,renal disease Depression ADHD Fatty liver and elevated LFT s--he had a completely negative liver workup in 2018 including viral serologies, autoimmune studies, iron studies, alpha-1 antitrypsin level, and a ceruloplasmin level. His abdominal ultrasound revealed a normal liver, normal spleen, and no ascites. Surgical History Surgery Date(Month/Year) rodriguez removed
--- OUTSIDE RECORDS SUMMARY | 2025-07-22 11:40 | XMS_ITS | Patient Health Record ---
Author Organization Harman Haro MD Address [address] [place], [place] [id number] Care Team Providers Care Professor Of Counseling Name Role Phone Harman Haro Primary Care Provider [phone] Allergies No Known Allergies Results Component Value Reference Range Notes Complete Blood Count Auto Di ff (Not yet reviewed by provider) Interpretation: Performing Lab:[facility], [address] [place] [id number] Notes/Report: White Blood Count 7.2 4.8-10.8 X10*3/uL [...] Abs Auto 0.000 0.0-0.012 X10*3/uL PSA,Total (Free>4and<10) (N ot yet reviewed by provider) Interpretation: Performing Lab:[address] [phone] Notes/Report: PSA,Total (Free>4and<10) 0.41 0.00-4.00 ng/mL A [...] (Not yet reviewed by provider) Interpretation: Performing Lab:[address] [phone] Notes/Report: Urine, Clean Catch Color Urine Yellow Appearance Urine Clear PH 8.5 5.0-9.0 Glucose Urine UA Negative Negative mg/dL Urine Blood Negative Negative Specific [place] - Urine 1.020 1.005-1.025 Urine Protein Negative Neg-Trace mg/dL Urine Ketones Negative Negative mg/dL Nitrite Urine Negative Negative Leukocyte Esterase Urine Negative Negative RBC Urine 0-2 0-2 /HPF WBC Urine 0-5 0-5 /HPF Squamous Epithelial Cell Urine 0-2 0-2 /HPF Bacteria Urine None Seen None Seen Hyaline Casts Urine 0-2 0-2 /LPF Reason For Referral No Information Medications Medication SIG (Take, Route, Frequency, Duration) Notes Start Date End Date Status Wixela Inhub 500-50 MCG/ACT INHALE 1 PUFF INTO THE LUNGS TWICE A DAY for 90 Active Pulmicort Flexhaler 180 MCG/ACT INHALE 2 PUFFS BY MOUTH TWICE A DAY SCHEDULE AND KEEP APPOINTMENT INHALATION TWICE A DAY 90 DAYS for 90 Active Tadalafil 20 MG 1 tablet Orally Once a day as needed for 30 day(s) 10/12/2021 Active Ritalin 10 mgs 1 tablet Orally tid Active CeleXA 40mg 1 tablet Orally Once a day for 30 day(s) Active ProAir HFA 108 (90 Base) MCG/ACT INHALE 2 PUFFS BY MOUTH EVERY 4 HOURS NEEDED ORALLY EVERY 4 HRS for 30 days Active Ventolin HFA * 108 2 puffs as needed Inhalation every 4 hrs for 30 Not-Taking Spiriva Respimat 1.25 MCG/ACT INHALE 2 PUFFS BY MOUTH ONCE DAILY for 90 Active Ibuprofen 600 MG 1 tablet Orally Thre e times a day Not-Taking Benzonatate 100 MG 1 capsule as needed Orally Three times a day Not-Uzair ing Ondansetron 4 MG 1 tablet on the tong ue and allow to dissolve Orally every 8 hrs Not-Taking Immunizations Vaccine Route Administration Date Status Comme nts TDaP IM Intramuscular 03/11/2013 Administered PPSV23 (Pnemovax) IM Intramuscular 03/11/2013 Administered Flu Vaccine IM Intramuscular 08/16/2013 Administered Fluarix Quadrivalent IM Intramuscular 08/11/2016 Administe red Fluarix Quadrivalent IM Intramuscular 07/18/2017 Administe red Fluarix Quadrivalent IM Intramuscular 07/24/2018 Administe red PPSV23 (Pnemovax) Unknown 01/25/2019 Administered Fluarix Quadrivalent IM Intramuscular 07/22/2019 Administe red Fluarix Quadrivalent IM Intramuscular 07/31/2020 Administe red SARS-COV-2 Pfizer Unknown 01/16/2021 Administered SARS-COV-2 Pfizer Unknown 02/10/2021 Administered SARS-COV-2 Pfizer Unknown 08/14/2021 Administered Fluarix Quadrivalent Unknown 08/14/2021 Administered Fluarix Quadrivalent Unknown 09/13/2022 Administered Fluarix Quadrivalent - 150 IM Intramuscular 07/23/2024 Adm inistered Fluarix Quadrivalent - 150 IM Intramuscular 07/22/2025 Adm inistered Flu Vaccine Unknown 11/11/2014 Refused Flu Vaccine Unknown 11/23/2015 Refused Tetanus Unknown 03/11/2013 Pending Social History Tobacco Use: Social History Observation [...] Never (0 point) Points 3 Interpretation Negative Section Notes: dips Patient states uses smokeles s tobacco. Problems Problem Type SNOMED Code ICD Code Onset Dates Problem Status W/U Status Risk Notes Problem 11239746 Attention and concentration deficit (R41.840) Active confirmed Problem 904090658 Body mass index (BMI) 35.0-35.9, adult (Z68.35) Active confirmed Problem 746429097 Elevated LFTs (R79.89) Active confirmed Problem 03466748 Essential hypertension (I10) Active confirmed Problem 674033726 Mild intermitten t asthma without complication (J45.20) Active confirmed Problem 736839706 Erectile dysfunction, unspecified erectile dysfunction type (N52.9) Active confirmed Problem 863773884 Obsessive-compul s joseph disorder, unspecified type (F42.9) Active confirmed Problem 813914259 BMI 32.0-32.9,adult (Z68.32) Active confirmed Problem 314949294880317 Moderate persistent asthmatic bronchitis with acute exacerbation (J45.41) Active confirmed Problem 403671531252193 Hematochezia (K92.1) Active confirmed Vital Signs Blood pressure diastolic 66 mm Hg 07/23/2024 Height 74 in 07/23/2024 Blood pressure systolic 124 mm Hg 07/23/2024 Weight 262 lbs 07/23/2024 BMI 33.64 kg/m2 07/23/2024 Encounters Encounter Location Date Provider Diagnosis Harman Haro MD [address] [place] [id number] 07/22/2025 Harman Haro Blood tests for routine general physical examination Z00.00 ; Encounter for administration of vaccine Z23 ; Essential hypertension I10 and Elevated LFTs R79.89 Harman Haro MD [address] [place] [id number] 07/23/2024 Harman Haro Essential hypertensi on I10 ; Encounter for general adult medical examination without abnormal findings Z00.00 ; Mild intermittent asthma without complication J45.20 ; Elevated LFTs R79.89 and Encounter for immunization Z23 Harman Haro MD [address] [place] [id number] 05/30/2025 Harman Haro MD [address] [place] [id number] 06/12/2025 Harman Haor Mild intermittent asthma without complication J45.20 Assessments Encounter Date Diagnosis (ICD Code) Assessment Notes Treatment Notes Treatment Clinical Notes Section Notes 07/22/2025 Blood tests for routine general physical examination (ICD-10 - Z00.00) 07/22/2025 Encounter for administration of vaccine (ICD-10 - Z23) 07/23/2024 Essential hypertension (ICD-10 - I10) doing well 07/23/2024 Encounter for general adult medical examination without abnormal findings (ICD-10 - Z00.00) Labs reviewed and discussed with patient 06/12/2025 Mild intermittent asthma without complication (ICD-10 - J45.20) 07/22/2025 Essential hypertension (ICD-10 - I10) 07/23/2024 Mild intermittent asthma without complication (ICD-10 - J45.20) stable with some wheezes 07/22/2025 Elevated LFTs (ICD-10 - R79.89) 07/23/2024 Elevated LFTs (ICD-10 - R79.89) has resolved 07/23/2024 Encounter for immunization (ICD-10 - Z23) Plan Of Treatment Pending Test Test Name Order Date Complete Blood Count Auto Diff 5 Comprehensive [place]. Panel Fast 5 Liver Panel 07/22/2025 Lipid Panel 07/22/2025 PSA,Total (Free>4and<10) 07/22/2025 UA ClnCatch+Micro w/rflx Cult 07/22/2025 Next Appt Details Provider Name:Harman Lim ier, 07/29/2025 01:00:00 PM, [address] [place] [address], [address], [place], [place], [phone], Insurance Providers Payer Name Payer Address Payer Phone Subscriber Number Group Number Insured Name Patient Relationship to Insured Coverage Start Date Coverage End Date [facility] [address] [facility] [address] [facility] [place] [phone] [id number] [id number] Law Fulton Self - patient is the insured Medical (General) History Medical History History ICD Code 06/29/[address] Ariza
[2025-07-22 12:13] LABS: Alanine Aminotransferase 40 U/L (0-40); Albumin Level 4.2 g/dL (3.5-5.0); Alkaline Phosphatase 90 U/L (39-117); Anion Gap 10 (12-20); Aspartate Amino Transferase 31 U/L (5-37); Blood Urea Nitrogen 16 mg/dL (9-16); Calcium 8.9 mg/dL (8.4-10.2); Carbon Dioxide 28 mmol/L (22-29); Chloride 108 mmol/L (96-108); Cholesterol 142 mg/dL (<200); Estimated Glomerular Filt Rate > 60; HDL Cholesterol 49 mg/dL (>40); Potassium 4.0 mmol/L (3.3-5.1); Sodium 142 mmol/L (135-145); Total Protein 7.2 g/dL (6.5-8.0); Triglycerides 58 mg/dL (<150)
== END 2025-07-22 09:46 | disposition home or self-care (01) ==
LOC: HO.LNP 09:45
PROVIDERS: Visit Provider Internal Medicine
DX: Z00.00 Encounter for general adult medical examination without abnormal findings (principal); I10 Essential (primary) hypertension; R79.89 Other specified abnormal findings of blood chemistry; Z12.5 Encounter for screening for malignant neoplasm of prostate
CPT/HCPCS: 80053; 80061; 80076; 81001; 82248; 84153; 85025